=== PATIENT | female | born 1990 | race African-American/Black ===

== ENCOUNTER 2022-08-23 20:56 | Emergency (ER) | payer MEDICAID, OTHER ==
[~2022-08-23] VITALS: Ht 162.6 cm; Wt 44.7 kg
[2022-08-24] MEDS ORDERED: FLUO20TA29 MT (03:28)
[2022-08-24] MEDS ORDERED: METR-167 MT (03:28)
[2022-08-24 03:40] VITALS: BP 115/75
== END 2022-08-24 03:42 | disposition home or self-care (01) ==
LOC: ER 20:56
DX: N76.0 Acute vaginitis (principal); L73.9 Follicular disorder, unspecified; F41.9 Anxiety disorder, unspecified; F32.9 Major depressive disorder, single episode, unspecified
CPT/HCPCS: 81025; 87210; 87491; 87591; 99283